=== PATIENT | female | born 2000 | race Caucasian/White ===

== ENCOUNTER 2023-06-06 16:47 | Inpatient (IN) | payer OTHER ==
[~2023-06-06] VITALS: Ht 167.6 cm; Wt 66.3 kg
[2023-06-06 17:46] VITALS: PULSE 118; RESP 17; O2SAT 100
[2023-06-06] MEDS ORDERED: SODIUM CHLORIDE 0.9% 1,000 ML IV ONE ×2 (18:00)
[2023-06-06 18:36] LABS: Basophils # (auto) 0 10 ^3/uL (0-0.2); Basophils % (auto) 0.2 % (0.0-2.0); Eosinophils # (auto) 0 10 ^3/uL (0-0.8); Eosinophils % (auto) 0.1 % (0.0-7.0); Hemoglobin 10.5 g/dL (12.2-16.2); Monocytes # (auto) 0.7 10 ^3/uL (0-1.3); Nucleated Red Blood Cells % 0.1 %
[2023-06-06 18:39] LABS: Hematocrit 29.9 % (36.0-46.0); Lymphocytes # (auto) 0.8 10 ^3/uL (0.4-5.4); Lymphocytes % (auto) 7.3 % (10.0-50.0); Mean Corpuscular Hemoglobin 32.2 pg (28.0-32.0); Mean Corpuscular Hgb Conc. 35.2 g/dL (32.0-36.0); Mean Corpuscular Volume 91.5 fL (80.0-100.0); Monocytes % (auto) 6.5 % (0.0-12.0); Neutrophils # (auto) 9.6 10 ^3/uL (1.6-8.6); Neutrophils % (auto) 85.9 % (37.0-80.0); Red Blood Cells 3.27 10^6/uL (4.0-5.20); Red Cell Distribution Width 14.3 % (11.8-14.3); White Blood Cell 11.2 10^3/uL (4.4-10.8)
[2023-06-06 18:51] LABS: Alanine Aminotransferase 23 U/L (7-40); Albumin 3.9 g/dL (3.2-4.8); Alkaline Phosphatase 119 U/L (46-116); Aspartate Aminotransferase 46 U/L (13-40); BUN/Creatinine Ratio 9.5 (10.0-20.0); Bilirubin, Total 1.2 mg/dL (0.2-1.0); Blood Urea Nitrogen 8 mg/dL (9-23); Calcium 9.7 mg/dL (8.5-10.1); Chloride 79 mmol/L (98-107); Glucose 91 mg/dL (74-106); Sodium 131 mmol/L (136-145); Total Protein 6.6 g/dL (5.7-8.2)
[2023-06-06 18:56] LABS: Anion Gap 11.99999 (5-15); Potassium 1.5 mmol/L (3.5-5.1)
[2023-06-06 18:57] LABS: Carbon Dioxide > 40 mmol/L (20-30)
[2023-06-06 19:30] VITALS: PULSE 104; RESP 18; O2SAT 99
[2023-06-06 19:30] LABS: INR 1.06 (0.9-1.15); Prothrombin Time 11.1 sec (9.3-11.8)
[2023-06-06 19:32] LABS: Lactic Acid w/Reflex 2.2 mmol/L (0.4-2.0)
[2023-06-06] MEDS ORDERED: PIPERACILLIN-TAZO 4.5GM 100 ML IV ONE (19:45)
[2023-06-06] MEDS ORDERED: POTASSIUM EFFERVESENT TAB 25 MEQ PO ONE (20:00)
[2023-06-06] MEDS ORDERED: ONDANSETRON HCL 4 MG/2 ML VIAL IV ONE (20:00)
[2023-06-06] MEDS ORDERED: SUCR1TAB PO (20:52)
[2023-06-06] MEDS: POTASSIUM CHL 20MEQ/100ML 100 ML IV SCH ×2 (20:54→23:08)
[2023-06-06] MEDS ORDERED: TEMAZEPAM 15 MG CAP PO ONE (21:00)
[2023-06-06] MEDS ORDERED: VANCOMYCIN 1GM/250ML 250 ML IV ONE (21:00)
[2023-06-06] MEDS ORDERED: PANTOPRAZOLE 40 MG/10 ML VIAL INJ IV ONE (21:00)
[2023-06-06 21:22] LABS: Free T3 3.29 pg/mL (2.3-4.2); Free T4 (Free Thyroxine) 1.94 ng/dL (0.89-1.76)
[2023-06-06] MEDS ORDERED: MORPHINE SULFATE INJ 2 MG/ml SYRG IV PRN ×2 (22:00)
[2023-06-06] MEDS ORDERED: ACETAMINOPHEN 325 MG TAB PO PRN (22:00)
[2023-06-06] MEDS ORDERED: DOCUSATE SOD 100 MG CAP PO PRN (22:00)
[2023-06-06] MEDS ORDERED: NITROGLYCERIN 0.4 MG SL TAB SL PRN (22:00)
[2023-06-06] MEDS ORDERED: ATORVASTATIN 20 MG TAB PO SCH (22:00)
[2023-06-06] MEDS ORDERED: ONDANSETRON HCL 4 MG/2 ML VIAL IV PRN (22:00)
[2023-06-06] MEDS: SODIUM CHLORIDE 0.9% 1,000 ML IV SCH (22:08)
[2023-06-06] MEDS: SUCRALFATE 1 GM TAB PO SCH (22:10)
[2023-06-06] MEDS: METOCLOPRAMIDE HCL 5MG/ml INJ 2ml VIAL IV PRN (22:16)
[2023-06-07 03:29] LABS: Sodium 131 mmol/L (136-145)
[2023-06-07 03:30] LABS: Anion Gap 7 (5-15); Calcium 8.1 mg/dL (8.7-10.4); Carbon Dioxide 35 mmol/L (20-30)
[2023-06-07 03:35] LABS: BUN/Creatinine Ratio 5.7 (10.0-20.0); Blood Urea Nitrogen 5 mg/dL (9-23); Glucose 87 mg/dL (74-106)
[2023-06-07 03:44] LABS: Chloride 89 mmol/L (98-107)
[2023-06-07 03:46] LABS: Potassium 2.7 mmol/L (3.5-5.1)
[2023-06-07] MEDS ORDERED: POTASSIUM CHL 20 Meq TABLET PO ONE (04:15)
[2023-06-07] MEDS: SODIUM CHLORIDE 0.9% 1,000 ML IV SCH ×3 (04:39→17:20)
[2023-06-07 05:14] LABS: LDL Cholesterol 29 mg/dL (< 100); Triglycerides 94 mg/dL (< 150)
[2023-06-07 05:15] LABS: HDL Cholesterol 33 mg/dL (40-59)
[2023-06-07 05:16] LABS: Cholesterol 89 mg/dL (< 200)
[2023-06-07] MEDS: METOCLOPRAMIDE HCL 5MG/ml INJ 2ml VIAL IV PRN (06:16)
[2023-06-07] MEDS: SUCRALFATE 1 GM TAB PO SCH ×4 (07:00→22:46)
[2023-06-07 07:50] VITALS: PULSE 90; RESP 16; O2SAT 98
[2023-06-07] MEDS: cefTRIAXone 1GM/50ML D5W 50 ML IV SCH (09:46)
[2023-06-07] MEDS ORDERED: ENOXAPARIN SOD 40 MG/0.4 ML SYRINGE SC SCH (10:00)
[2023-06-07] MEDS ORDERED: ASPirin-EC 81 mg tab PO SCH (10:00)
[2023-06-07 10:02] LABS: Urine Bacteria MANY /hpf (None Seen); Urine Blood Negative /uL (Negative); Urine Clarity HAZY (Clear); Urine Color Yellow (Yellow); Urine Mucus FEW (None Seen); Urine Protein, UAD 1+ (Negative); Urine Specific Gravity 1.016 (1.001-1.035); Urine WBC 14 /hpf (0 - 5)
[2023-06-07 10:03] LABS: Amphetamine Screen, Urine Neg (NEGATIVE)
[2023-06-07 10:04] LABS: Barbiturate Scree,Urine Neg (NEGATIVE); Benzodiazephine Screen, Urine Pos (NEGATIVE); Cannabinoid Screen, Urine Pos (NEGATIVE); Cocaine Screen, Urine Neg (NEGATIVE); Opiate Scree,Urine Neg (NEGATIVE); Phencyclidine Screen, Urine Neg (NEGATIVE)
[2023-06-07 10:39] LABS: Folate (Folic Acid) 3.77 ng/mL (>5.38)
[2023-06-07] MEDS: PANTOPRAZOLE 40 MG/10 ML VIAL INJ IV SCH (10:39)
[2023-06-07] MEDS ORDERED: ALBUMIN 25% 100 ML IV ONE (12:15)
[2023-06-07] MEDS ORDERED: POTASSIUM EFFERVESENT TAB 25 MEQ PO ONE (14:00)
[2023-06-07] MEDS: POTASSIUM CHL 20MEQ/100ML 100 ML IV SCH ×3 (14:38→20:22)
[2023-06-07 20:00] VITALS: PULSE 111; RESP 18; O2SAT 99
[2023-06-07 22:49] LABS: Magnesium 1.5 mg/dL (1.6-2.6)
[2023-06-08] VITALS (15 sets, daily range): BP systolic 100–120; BP diastolic 55–80; PULSE 86–131; RESP 11–19; TEMP 97.9–98.6; O2SAT 99–100
[2023-06-08] MEDS: SODIUM CHLORIDE 0.9% 1,000 ML IV SCH ×5 (05:29→21:47)
[2023-06-08 06:00] LABS: Alanine Aminotransferase 11 U/L (7-40); Albumin 2.5 g/dL (3.2-4.8); Alkaline Phosphatase 81 U/L (46-116); Anion Gap 6 (5-15); Aspartate Aminotransferase 19 U/L (13-40); Calcium 7.2 mg/dL (8.7-10.4); Carbon Dioxide 31 mmol/L (20-30); Chloride 100 mmol/L (98-107); Glucose 83 mg/dL (74-106); Magnesium 1.9 mg/dL (1.6-2.6); Potassium 2.9 mmol/L (3.5-5.1); Sodium 137 mmol/L (136-145)
[2023-06-08 06:01] LABS: Bilirubin, Total 0.3 mg/dL (0.2-1.0); Total Protein 4.4 g/dL (5.7-8.2)
[2023-06-08] MEDS: SUCRALFATE 1 GM TAB PO SCH ×4 (06:35→21:12)
[2023-06-08 06:39] LABS: Blood Urea Nitrogen < 5 mg/dL (9-23)
[2023-06-08 07:18] LABS: Basophils # (auto) 0 10 ^3/uL (0-0.2); Eosinophils # (auto) 0.1 10 ^3/uL (0-0.8); Hemoglobin 7.4 g/dL (12.2-16.2); Lymphocytes # (auto) 0.9 10 ^3/uL (0.4-5.4); Monocytes # (auto) 0.3 10 ^3/uL (0-1.3); Nucleated Red Blood Cells % 0.1 %
[2023-06-08 07:20] LABS: Basophils % (auto) 0.9 % (0.0-2.0); Eosinophils % (auto) 1.4 % (0.0-7.0); Hematocrit 21.9 % (36.0-46.0); Lymphocytes % (auto) 20.8 % (10.0-50.0); Mean Corpuscular Hemoglobin 31.8 pg (28.0-32.0); Mean Corpuscular Hgb Conc. 33.7 g/dL (32.0-36.0); Mean Corpuscular Volume 94.1 fL (80.0-100.0); Monocytes % (auto) 6.4 % (0.0-12.0); Neutrophils % (auto) 70.5 % (37.0-80.0); Red Blood Cells 2.33 10^6/uL (4.0-5.20); Red Cell Distribution Width 14.5 % (11.8-14.3); White Blood Cell 4.2 10^3/uL (4.4-10.8)
[2023-06-08] MEDS: PANTOPRAZOLE 40 MG/10 ML VIAL INJ IV SCH (10:30)
[2023-06-08] MEDS: cefTRIAXone 1GM/50ML D5W 50 ML IV SCH (10:30)
[2023-06-08] MEDS: THIAMINE 100mg/ml INJ (200mg/2ml VIAL) IV SCH (10:30)
[2023-06-08] MEDS: PYRIDOXINE HCL 50 MG TAB PO SCH (11:03)
[2023-06-08] MEDS: FOLIC ACID 1 MG in D5W 5% 50 ML INJ SCH (11:04)
[2023-06-08] MEDS ORDERED: POTASSIUM CHLORIDE 40 MEQ, LIDOCAINE 1% (LOCAL ANESTH.) 4 ML in SODIUM CHL 0.9% 250 ML IV ONE (11:15)
[2023-06-08] MEDS ORDERED: POTASSIUM CHL 20 Meq TABLET PO ONE (11:15)
[2023-06-08] MEDS: MAGNESIUM SULFATE 1GM/100ML 100 ML IV SCH ×2 (11:33→11:56)
[2023-06-08] MEDS ORDERED: POTASSIUM EFFERVESENT TAB 25 MEQ GT ONE ×2 (11:45→19:15)
[2023-06-08 18:51] LABS: Potassium 3.2 mmol/L (3.5-5.1)
[2023-06-08 18:58] LABS: Magnesium 2.3 mg/dL (1.6-2.6)
[2023-06-08] MEDS ORDERED: TEMAZEPAM 15 MG CAP PO PRN (19:15)
[2023-06-08] MEDS: HYDROcodone-ACET 5/325MG TAB PO PRN (22:46)
[2023-06-09] VITALS (18 sets, daily range): BP systolic 94–124; BP diastolic 60–82; PULSE 107–135; RESP 10–22; TEMP 37.2; O2SAT 10–100
[2023-06-09] MEDS: HYDROcodone-ACET 5/325MG TAB PO PRN (04:22)
[2023-06-09 05:21] LABS: Hemoglobin 7.3 g/dL (12.2-16.2); Lymphocytes # (auto) 1.2 10 ^3/uL (0.4-5.4); Mean Corpuscular Volume 93.8 fL (80.0-100.0)
[2023-06-09 05:24] LABS: Basophils # (auto) 0 10 ^3/uL (0-0.2); Basophils % (auto) 0.6 % (0.0-2.0); Eosinophils # (auto) 0.1 10 ^3/uL (0-0.8); Eosinophils % (auto) 2.2 % (0.0-7.0); Hematocrit 21.1 % (36.0-46.0); Lymphocytes % (auto) 18.4 % (10.0-50.0); Mean Corpuscular Hemoglobin 32.7 pg (28.0-32.0); Mean Corpuscular Hgb Conc. 34.9 g/dL (32.0-36.0); Monocytes # (auto) 0.4 10 ^3/uL (0-1.3); Monocytes % (auto) 5.6 % (0.0-12.0); Neutrophils # (auto) 4.8 10 ^3/uL (1.6-8.6); Neutrophils % (auto) 73.2 % (37.0-80.0); Red Blood Cells 2.25 10^6/uL (4.0-5.20); Red Cell Distribution Width 14.3 % (11.8-14.3); White Blood Cell 6.5 10^3/uL (4.4-10.8)
[2023-06-09 05:29] LABS: Anion Gap 5 (5-15); Carbon Dioxide 29 mmol/L (20-30); Chloride 103 mmol/L (98-107); Potassium 3.1 mmol/L (3.5-5.1); Sodium 137 mmol/L (136-145)
[2023-06-09 05:30] LABS: Calcium 7.6 mg/dL (8.7-10.4)
[2023-06-09 05:35] LABS: BUN/Creatinine Ratio 7.1 (10.0-20.0); Blood Urea Nitrogen < 5 mg/dL (9-23); Glucose 92 mg/dL (74-106); Magnesium 1.9 mg/dL (1.6-2.6)
[2023-06-09] MEDS: SUCRALFATE 1 GM TAB PO SCH ×3 (06:20→17:00)
[2023-06-09] MEDS: SODIUM CHLORIDE 0.9% 1,000 ML IV SCH (08:00)
[2023-06-09] MEDS: THIAMINE 100mg/ml INJ (200mg/2ml VIAL) IV SCH (08:19)
[2023-06-09] MEDS: cefTRIAXone 1GM/50ML D5W 50 ML IV SCH (08:19)
[2023-06-09] MEDS: PANTOPRAZOLE 40 MG/10 ML VIAL INJ IV SCH (08:19)
[2023-06-09] MEDS: FOLIC ACID 1 MG in D5W 5% 50 ML INJ SCH (08:20)
[2023-06-09] MEDS ORDERED: POTASSIUM EFFERVESENT TAB 25 MEQ PO ONE (09:15)
[2023-06-09] MEDS: PYRIDOXINE HCL 50 MG TAB PO SCH (09:18)
[2023-06-09] MEDS: MAGNESIUM SULFATE 1GM/100ML 100 ML IV SCH ×2 (10:25→11:43)
[2023-06-09 10:27] LABS: % Iron Saturation 61.1 % (15-50)
[2023-06-09] MEDS ORDERED: SODIUM FERR GLUC 62.5MG/5ML 125 MG in SODIUM CHL 0.9% 100 ML IV SCH (12:00)
[2023-06-09 13:18] LABS: Hematocrit 25.9 % (36.0-46.0); Hemoglobin 8.6 g/dL (12.2-16.2)
== END 2023-06-09 20:30 | disposition short-term general hospital (02) | DRG 872 ==
LOC: EDBD 16:47 → ER 16:47 → TELE 21:58 → DOU IN ICU 06-08 10:16 → TELE-WESTW 06-09 14:53
PROVIDERS: ADMIT Nurse Practitioner Family; ATTEND Internal Medicine
DX: A41.9 Sepsis, unspecified organism (principal); E87.1 Hypo-osmolality and hyponatremia; N39.0 Urinary tract infection, site not specified; E44.0 Moderate protein-calorie malnutrition; E87.4 Mixed disorder of acid-base balance; E86.9 Volume depletion, unspecified; E87.6 Hypokalemia; E86.0 Dehydration; K76.0 Fatty (change of) liver, not elsewhere classified; F09 Unspecified mental disorder due to known physiological condition; D64.9 Anemia, unspecified; E53.8 Deficiency of other specified B group vitamins; E83.42 Hypomagnesemia; W18.39XA Other fall on same level, initial encounter; Y93.89 Activity, other specified; Z87.820 Personal history of traumatic brain injury; Z93.3 Colostomy status; Z90.711 Acquired absence of uterus with remaining cervical stump; Z68.23 Body mass index [BMI] 23.0-23.9, adult; Y92.89 Other specified places as the place of occurrence of the external cause; Y99.8 Other external cause status
CPT/HCPCS: 36415; 70450; 70551; 71045; 74176; 80048; 80053; 80061; 80307; 81001; 82607; 82746; 83036; 83540; 83550; 83605; 83690; 83735; 83880; 84132; 84207; 84425; 84439; 84443; 84481; 84484; 84702; 85014; 85018; 85025; 85610; 87040; 87086; 87088; 87186; 95819; 96361; 96365; 96375; 97110; 97116; 97163; 97530; C9113; G0378; J0696; J2001; J2405; J2543; J3480; J7060